=== PATIENT | female | born 1965 | race African-American/Black ===

== ENCOUNTER 2018-10-16 09:42 | Emergency (ER) | payer SELFPAY ==
[2018-10-16 10:03] VITALS: BP 142/95
--- NOTE | 2018-10-16 11:21 | Emergency Department Report ---
ED Fall HPI - General Chief Complaint: Head Injury Stated Complaint: FACE INJURY Time Seen by Provider: 10/16/18 11:13 Source: patient, family Mode of arrival: Ambulatory - History of Present Illness Initial Comments: Patient is 53 years old female with no significant past medical history. Patient presented to the ER accompanied by her is translating for her. He stated that patient slipped and fell 2 days ago and hit her head and right side of her face and her back also. Patient denied any loss of consciousness, focal weakness numbness or tingling sensation. No bowel or bladder incontinence. MD Complaint: fall -: week(s) Fall From: standing Fall Witnessed: yes, by family Place Fall Occurred: home Loss of Consciousness: none Symptoms Prior to Fall: none Location: head, face, back Severity: moderate Severity scale (0 -10): 4 Quality: dull Context: tripped/slipped Associated Symptoms: denies - Related Data Allergies Allergy/AdvReac Type Severity Reaction Status Date / Time No Known Allergies Allergy Unverified 10/16/18 09:56 ED Review of Systems ROS: Stated complaint: FACE INJURY Other details as noted in HPI Comment: All other systems reviewed and negative Constitutional: denies: chills, fever Respiratory: denies: cough, shortness of breath, SOB with exertion Cardiovascular: denies: chest pain Gastrointestinal: denies: abdominal pain, nausea, vomiting, diarrhea, constipation, hematemesis, melena, hematochezia Musculoskeletal: back pain Neurological: denies: headache, weakness, numbness, paresthesias, confusion, abnormal gait ED Past Medical Hx - Past Medical History Previous Medical History?: Yes Additional medical history: Appendicitis - Surgical History Past Surgical History?: Yes Hx Appendectomy: Yes Additional Surgical History: - Social History Smoking Status: Never Smoker Substance Use Type: None ED Physical Exam - General Limitations: Language Barrier General appearance: alert, in no apparent distress - Head Head exam: Present: other - Eye Eye exam: Present: periorbital swelling, periorbital tenderness - ENT ENT exam: Present: normal exam, normal orophraynx - Neck Neck exam: Present: normal inspection, full ROM. Absent: tenderness, meningismus, lymphadenopathy, thyromegaly - Respiratory Respiratory exam: Present: normal lung sounds bilaterally - Cardiovascular Cardiovascular Exam: Present: regular rate, normal rhythm, normal heart sounds - GI/Abdominal GI/Abdominal exam: Present: soft, normal bowel sounds. Absent: distended, tenderness, guarding, rebound, rigid, organomegaly, mass, bruit, pulsatile mass, hernia - Extremities Exam Extremities exam: Present: normal inspection, full ROM, normal capillary refill. Absent: pedal edema, calf tenderness - Back Exam Back exam: Present: normal inspection, full ROM. Absent: CVA tenderness (R), CVA tenderness (L), muscle spasm, paraspinal tenderness, vertebral tenderness - Neurological Exam Neurological exam: Present: alert, oriented X3, CN II-XII intact, normal gait, reflexes normal - Psychiatric Psychiatric exam: Present: normal mood - Skin Skin exam: Present: warm, intact, normal color ED Course Vital Signs 10/16/18 09:56 Temperature 98.1 F Pulse Rate 79 Respiratory 18 Rate Blood Pressure 142/95 O2 Sat by Pulse 98 Oximetry ED Medical Decision Making - Radiology Data Radiology results: report reviewed Referring Physician: CHIQUITA HOLLAND Patient Name: TIMOTHY CAMP Date of : 1965 Sex: Female Report Date: 2018-10-16 Report Status: Finalized Findings [facility] [address] [place] [address] Cat Scan Report Signed Patient: TIMOTHY CAMP MR#: [id number] : 1965 Acct:[id number] Age/Sex: 53 / F ADM Date: 10/16/18 Loc: ED Attending Dr: Ordering Physician: CHIQUITA HOLLAND Date of Service: 10/16/18 Procedure(s): CT facial bones wo [facility] Accession Number(s): [id number] cc: CHIQUITA HOLLAND CT MAXILLOFACIAL WITHOUT CONTRAST INDICATION: FALL, FACIAL TRAUMA. Patient reports right eye pain. TECHNIQUE: Maxillofacial CT without contrast All CT scans at this location are performed using CT dose reduction for ALARA by means of automated exposure control. COMPARISON: None available. FINDINGS: FACIAL BONES: No fracture or other significant abnormality. PARANASAL SINUSES: No significant abnormality. ORBITS: There is a small periorbital hematoma around the right eye. The right globe appears normal. There is no intraorbital hematoma. VISUALIZED INTRACRANIAL STRUCTURES: No significant abnormality. ADDITIONAL FINDINGS: None. IMPRESSION: 1. Small periorbital hematoma in the subcutaneous soft tissues around the right eye without intraorbital soft tissue injury. 2. No acute maxillofacial fracture identified. Signer Name: Remy Mckinley MD Signed: 10/16/2018 12:24 PM Workstation Name: [id number] Transcribed By: DARNELL Dictated By: Remy Mckinley MD Electronically Authenticated By: Remy Mckinley MD Signed Date/Time: 10/16/18 1224 DD/ 1222 TD/TT: Referring Physician: CHIQUITA HOLLAND Patient Name: TIMOTHY CAMP Date of : 1965 Sex: Female Report Date: 2018-10-16 Report Status: [place] [address] Cat Scan Report Signed Patient: TIMOTHY CAMP MR#: [id number] : 1965 Acct:[id number] Age/Sex: 53 / F ADM Date: 10/16/18 Loc: ED Attending Dr: Ordering Physician: CHIQUITA HOLLAND Date of Service: 10/16/18 Procedure(s): CT head/brain wo con Accession Number(s): [id number] cc: CHIQUITA HOLLAND CT head/brain wo con INDICATION: Altered mental status, recent fall. TECHNIQUE: Routine CT head without contrast. All CT scans at this location are performed using CT dose reduction for ALARA by means of automated exposure control. COMPARISON: None. FINDINGS: BRAIN / INTRACRANIAL CONTENTS: No acute hemorrhage, mass effect, midline shift, or hydrocephalus. No appreciable acute large territorial or lacunar infarct. No chronic infarct or focal atrophy. Normal brain volume and ventricular/sulcal size for age. ORBITS: No significant abnormality of visualized orbits. SINUSES / MASTOIDS: No significant abnormality of visualized sinuses and mastoid air cells. ADDITIONAL FINDINGS: None. IMPRESSION: 1. Negative head CT. Signer Name: Remy Mckinley MD Signed: 10/16/2018 12:22 PM Workstation Name: [id number] Transcribed By: DARNELL Dictated By: Remy Mckinley MD Electronically Authenticated By: Remy Mckinley MD Signed Date/Time: 10/16/18 1222 DD/ 1221 TD/TT: - Medical Decision Making Patient is 53 years old female with no significant past medical history. Patient presented to the ER accompanied by her is translating for her. He stated that patient slipped and fell 2 days ago and hit her head and right side of her face and her back also. Patient denied any loss of consciousness, focal weakness numbness or tingling sensation. No bowel or bladder incontinence. Patient remained stable in the ER. CT brain, CT facial bone and x-ray of the lumbar spine is negative for acute finding. I asked the patient directly if there is any possibility of spouse abuse patient immediately denied. I advised her to return to the ER if she have any new symptoms or if she needs any help including social help also. Critical care attestation.: If time is entered above; I have spent that time in minutes in the direct care of this critically ill patient, excluding procedure time. ED Disposition Clinical Impression: Fall, Head injury due to trauma, Lower back injury Disposition: TO HOME OR SELFCARE Is pt being admited?: No Condition: Stable Instructions: Fall Prevention (ED), Minor Head Injury (ED), Low Back Strain (ED) Referrals: PRIMARY [facility] [Referring] - 3-5 Days
--- NOTE | 2018-10-16 11:48 | XRay Report ---
Lumbar spine 3 views INDICATION: Low back pain following injury IMPRESSION: There is some slight loss of height involving the L5 vertebral body, age indeterminate. T here is severe discogenic type degenerative change at L4-L5. No lumbar spine subluxation identified. Signer Name: Kilo Martinez MD Signed: 10/16/2018 11:44 AM Workstation Name: [id number]
--- NOTE | 2018-10-16 12:27 | Cat Scan Report ---
CT head/brain wo con INDICATION: Altered mental status, recent fall. TECHNIQUE: Routine CT head without contrast. All CT scans at this location are performed using CT dos e reduction for ALARA by means of automated exposure control. COMPARISON: None. FINDINGS: BRAIN / INTRACRANIAL CONTENTS: No acute hemorrhage, mass effect, midline shift, or hydrocephalus. No appreciable acute large territorial or lacunar infarct. No chronic infarct or focal atrophy. Normal b rain volume and ventricular/sulcal size for age. ORBITS: No significant abnormality of visualized orbits. SINUSES / MASTOIDS: No significant abnormality of visualized sinuses and mastoid air cells. ADDITIONAL FINDINGS: None. IMPRESSION: 1. Negative head CT. Signer Name: Remy Mckinley MD Signed: 10/16/2018 12:22 PM Workstation Name: [email or web address]
--- NOTE | 2018-10-16 12:29 | Cat Scan Report ---
CT MAXILLOFACIAL WITHOUT CONTRAST INDICATION: FALL, FACIAL TRAUMA. Patient reports right eye pain. TECHNIQUE: Maxillofacial CT without contrast All CT scans at this location are performed using CT dose reduction for ALARA by means of automated exposure control. COMPARISON: None available. FINDINGS: FACIAL BONES: No fracture or other significant abnormality. PARANASAL SINUSES: No significant abnormality. ORBITS: There is a small periorbital hematoma around the right eye. The right globe appears normal. T here is no intraorbital hematoma. VISUALIZED INTRACRANIAL STRUCTURES: No significant abnormality. ADDITIONAL FINDINGS: None. IMPRESSION: 1. Small periorbital hematoma in the subcutaneous soft tissues around the right eye without intraor bital soft tissue injury. 2. No acute maxillofacial fracture identified. Signer Name: Remy Mckinley MD Signed: 10/16/2018 12:24 PM Workstation Name: [id number]
[2018-10-17] MEDS ORDERED: NACL 0.9% 1000 ML 0 ML ONE (23:13)
== END 2018-10-16 12:59 | disposition home or self-care (01) ==
LOC: ED 09:42
DX: S39.92XA Unspecified injury of lower back, initial encounter (principal); S09.90XA Unspecified injury of head, initial encounter; W01.10XA Fall on same level from slipping, tripping and stumbling with subsequent striking against unspecified object, initial encounter; Y93.89 Activity, other specified; Y92.89 Other specified places as the place of occurrence of the external cause; Y99.8 Other external cause status
CPT/HCPCS: 70450; 70486; 72100; J7030

== ENCOUNTER 2021-08-28 13:49 | Emergency (ER) | payer SELFPAY ==
[2021-08-28] MEDS ORDERED: ACETAMINOPHEN 325 MG TAB PO ONE (16:52)
[2021-08-28] MEDS ORDERED: METOCLOPRAMIDE 10 MG TAB PO ONE (16:52)
--- NOTE | 2021-08-28 16:54 | Emergency Department Report ---
ED General Adult HPI - General Chief complaint: Fall Stated complaint: GLF/HIT HEAD/LEFT SHOULDER/AND BACK PAIN Time Seen by Provider: 08/28/21 16:33 Source: patient, family, EMS ( EMS documentation not available at time of chart dictation ), RN notes reviewed, old records reviewed Mode of arrival: Stretcher Limitations: Language Barrier - History of Present Illness Initial comments: The patient was evaluated in the emergency department for symptoms described in the history of present illness. He/she was evaluated in the context of the global COVID-19 pandemic, which necessitated consideration that the patient might be at risk for infection with the virus that causes COVID-19. Institutional protocols and algorithms that pertain to the evaluation of patients at risk for COVID-19 are in a state of rapid change based on information released by regulatory bodies including the CDC and federal and state organizations. These policies and algorithms were followed during the patient's care in the emergency department. Please note that these policies, procedures and recommendations changed on a rapid basis. [place]ian per diem interpreter [id number] During the history and physical examination I am chaperoned by nurse Tosin Dunn. Patient is a 56-year-old female who has reported no significant past medical history, who presents today with a complaint of probable mechanical fall. Patient reports being in her usual state of health, when she fell at work. She reports no antecedent symptoms. After the fall, she complains of headache, neck pain, left upper back pain and left shoulder pain. The patient states that she does not specifically recall waking up. She only complains in the aforementioned areas. She believes that she fell at around 8:30 in the morning She told the nursing team that she fell onto her butt and then onto her back without antecedent symptoms. Severity scale (0 -10): 5 - Related Data Previous Rx's Medication Instructions Recorded Last Taken Type Acetaminophen [Non-Aspirin Extra 500 mg PO Q6HR PRN #30 tablet 08/28/21 Unknown Rx Strength] Ibuprofen [Motrin] 600 mg PO Q8H PRN #30 tablet 08/28/21 Unknown Rx Metoclopramide [Reglan] 10 mg PO QID PRN #30 tablet 08/28/21 Unknown Rx Allergies Allergy/AdvReac Type Severity Reaction Status Date / Time No Known Allergies Allergy Verified 08/28/21 13:58 ED Review of Systems ROS: Stated complaint: GLF/HIT HEAD/LEFT SHOULDER/AND BACK PAIN Other details as noted in HPI Constitutional: see HPI ENT: as per HPI Respiratory: see HPI Cardiovascular: as per HPI. denies: chest pain Gastrointestinal: denies: abdominal pain Musculoskeletal: back pain, arthralgia, myalgia Neurological: headache. denies: weakness ED Past Medical Hx - Past Medical History Additional medical history: Appendicitis - Surgical History Hx Appendectomy: Yes Additional Surgical History: - Social History Smoking Status: Never Smoker Substance Use Type: None - Medications Home Medications: Home Medications Medication Instructions Recorded Confirmed Last Taken Type Acetaminophen [Non-Aspirin Extra 500 mg PO Q6HR PRN #30 tablet 08/28/21 Unknown Rx Strength] Ibuprofen [Motrin] 600 mg PO Q8H PRN #30 tablet 08/28/21 Unknown Rx Metoclopramide [Reglan] 10 mg PO QID PRN #30 tablet 08/28/21 Unknown Rx ED Physical Exam - General Limitations: Language Barrier General appearance: alert, in no apparent distress - Head Head exam: Present: atraumatic, normocephalic - Eye Eye exam: Present: normal appearance, EOMI. Absent: nystagmus - ENT ENT exam: Present: normal exam, normal orophraynx, mucous membranes moist, normal external ear exam - Neck Neck exam: Present: normal inspection, tenderness, full ROM, other (There is paracervical tenderness. There is no midline spinal tenderness or step-off). Absent: meningismus - Respiratory Respiratory exam: Present: normal lung sounds bilaterally. Absent: respiratory distress, wheezes, rales, rhonchi, stridor - Cardiovascular Cardiovascular Exam: Present: regular rate, normal rhythm, normal heart sounds. Absent: bradycardia, tachycardia, irregular rhythm, systolic murmur, diastolic murmur, rubs, gallop - GI/Abdominal GI/Abdominal exam: Present: soft. Absent: distended, tenderness, guarding, rebound, rigid, pulsatile mass - Extremities Exam Extremities exam: Present: normal inspection, full ROM, tenderness (There is left shoulder and left posterior trapezius tenderness), other (2+ pulses noted in the bilateral upper and lower extremities. There is no palpable cord. negative Homans sign. Muscular compartments are soft. The pelvis is stable.). Absent: calf tenderness - Back Exam Back exam: Present: normal inspection, paraspinal tenderness. Absent: tenderness, CVA tenderness (R), muscle spasm, vertebral tenderness - Neurological Exam Neurological exam: Present: alert, other (There is no facial droop. The tongue is midline. EOMI. 5 out of 5 strength in 4 extremities. Sensation is intact to light touch and pinch in 4 extremities) - Psychiatric Psychiatric exam: Present: flat affect - Skin Skin exam: Present: warm, dry, intact, normal color. Absent: rash ED Course Vital Signs 08/28/21 08/28/21 08/28/21 13:55 17:36 17:39 Temperature 98.3 F 98.9 F Pulse Rate 53 L 82 71 Respiratory 16 18 18 Rate Blood Pressure 150/65 Blood Pressure 136/66 150/63 [Left] O2 Sat by Pulse 99 99 99 Oximetry - Reevaluation(s) Reevaluation #1: 08/28/21 18:22 Differential diagnosis, including but not limited to: Orthostasis, vagal event, closed head injury, sprain, strain, fracture, dislocation Assessment and plan: 56-year-old female, who is not currently tachycardic, tachypneic or hypoxic, who is low risk by Wells criteria for pulmonary embolism, who presents to the department today with a complaint of fall which is likely mechanical. She is clinically sober, moving 4 extremities, and currently looking on her cellular phone at this time, and she is in no acute distress. Her EKG does not demonstrate any emergent findings. CT scan of the brain and cervical spine are negative for acute or emergent findings. X-ray of the chest and left shoulder are negative for acute/emergent findings. Patient reports the event happened at 830 this morning. Laboratory studies are essentially nonactionable. Patient is observed in this department for hours without clinical decompensation, or any loss of consciousness. This is most likely mechanical fall, with closed injury and concussion. Rest, ice, compression, elevation, Tylenol, Motrin, as needed Reglan, follow-up with outpatient primary care 08/28/21 18:50 Laboratory studies are unremarkable. Imaging studies are unremarkable. Using auto hauler #[id number], discussed all findings with patient. She articulates understanding. Patient is making multiple request to be discharged. She is advised as to the natural history of blunt head injury and concussion. All questions are answered. Return precautions are reviewed. On final reassessment, the patient is sitting down in stretcher, in no acute distress, on her cell phone, moving 4 extremities, protecting her airway, and endorsing this desire and readiness for discharge ED Medical Decision Making - Lab Data Result diagrams: 08/28/21 17:48 08/28/21 17:48 Vital Signs 08/28/21 08/28/21 08/28/21 13:55 17:36 17:39 Temperature 98.3 F 98.9 F Pulse Rate 53 L 82 71 Respiratory 16 18 18 Rate Blood Pressure 150/65 Blood Pressure 136/66 150/63 [Left] O2 Sat by Pulse 99 99 99 Oximetry - EKG Data -: EKG Interpreted by Ca EKG shows normal: sinus rhythm Rate: normal - EKG Data 08/28/21 17:45 The EKG is interpreted at 17: 33 Sinus rhythm, 67 bpm 67 bpm. Normal axis, normal P wave axis, motion artifact, QTC 4 3 4 ms. This is an abnormal EKG. This is not a STEMI - Radiology Data Radiology results: pending, report reviewed, image reviewed CT head/brain wo con INDICATION / CLINICAL INFORMATION: 56 years Female; fall closed hea dinjury. TECHNIQUE: Routine CT head without contrast. All CT scans at this location are performed using CT dose reduction for ALARA by means of automated exposure control. COMPARISON: The study is compared to previous CT of 10/16/2018. FINDINGS: BRAIN / INTRACRANIAL CONTENTS: There is calcification involving basal ganglia bilaterally. The brain otherwise appears to demonstrate appropriate attenuation for age. The ventricular system is within normal limits in size and configuration. There is no clear CT evidence of acute intracranial hemorrhage or significant mass effect. ORBITS: No significant abnormality of visualized orbits. SINUSES / MASTOIDS: No significant abnormality in the visualized paranasal sinuses or mastoid air cells. CRANIOCERVICAL JUNCTION: No significant abnormality. ADDITIONAL FINDINGS: None. IMPRESSION: 1. There is no clear CT evidence of acute intracranial process. Signer Name: Shaw Rich MD Signed: 08/28/2021 4:17 PM Workstation Name: [id number] CT CERVICAL SPINE: 08/28/2021 INDICATION / CLINICAL INFORMATION: fall closed hea dinjury. COMPARISON: None available. FINDINGS: CT images of the cervical spine were obtained. Images are evaluated in the axial, coronal, and sagittal planes. There is no evidence of acute abnormality. Mild left convex scoliosis of the cervical spine is associated with right convexity of the upper thoracic spine. Vertebral body height is well preserved. Degenerative disc space narrowing and osteophyte formation is present at C3-4 C4-5, C5-6. There is no evidence of osseous canal narrowing. Left-sided foraminal narrowing is present at C3-4 and C5-6. CRANIOCERVICAL JUNCTION: Unremarkable. PARASPINAL STRUCTURES: No acute abnormality. IMPRESSION: All CT scans at this location are performed using dose reduction to ALARA by means of automated exposure control. Signer Name: Ion Richardson MD Signed: 08/28/2021 4:27 PM . XR chest 1V ap INDICATION / CLINICAL INFORMATION: fall upper back pain pain. COMPARISON: None available. FINDINGS: SUPPORT DEVICES: None. HEART /PULMONARY VASCULATURE: No significant abnormality. LUNGS / PLEURA: No significant pulmonary or pleural abnormality. No pneumothorax. ADDITIONAL FINDINGS: No acute displaced fracture. IMPRESSION: 1. No acute findings. Signer Name: Jose Villa MD Signed: 08/28/2021 4:57 PM Workstation Name: [id number] Left shoulder 3 views INDICATION: Fall FINDINGS: Glenohumeral joint and AC joint appear normal. No acute fracture or dislocation. Osteophyte femoral head neck junction medially. Signer Name: Suleman Harding MD Signed: 08/28/2021 4:57 PM Workstation Name: [id number] Critical care attestation.: If time is entered above; I have spent that time in minutes in the direct care of this critically ill patient, excluding procedure time. ED Disposition Clinical Impression: Neck pain Fall Qualifiers: Encounter type: initial encounter Qualified Code(s): W19.XXXA - Unspecified fall, initial encounter Closed head injury Qualifiers: Encounter type: initial encounter Qualified Code(s): S09.90XA - Unspecified injury of head, initial encounter Left shoulder pain Qualifiers: Chronicity: acute Qualified Code(s): M25.512 - Pain in left shoulder Disposition: 01 HOME / SELF CARE / HOMELESS Is pt being admited?: No Does the pt Need Aspirin: No Condition: Good Additional Instructions: Pain typically gets worse before its better after mechanical fall. Recommend that patient rest, avoid heavy lifting and strenuous physical activity and avoid contact sports, athletics, and follow-up with a primary care doctor within the next 5 to 7 days for repeat checkup and evaluation. Alternate ice packs and heat packs, and participate in range of motion exercises as tolerated. Recommend the patient not drive, operate motor vehicles, or make important decisions. Recommend that patient follow-up with a primary care doctor within the next week for repeat checkup and evaluation. Please take the prescribed callie n medications and headache medication/vomiting medication as needed and directed. please return to the emergency room right away with new pain, worsened pain, migration of pain, projectile vomiting, change in mental status, confusion, inability tolerate liquid feeds, new, worsened or different symptoms not present on the initial emergency room evaluation ?au th??ng tr? nn t?i t? h?n tr??c khi ?? h?n brayan c ng c? h?c. Khuy?n co b?nh nhn nn ngh? ng?i, trnh khun vc n?ng v ho?t ??ng th? ch?t g?ng s?c v trnh ti?p xc v?i cc mn th? harish, ?i?n kinh v ti khm v?i bc s? ch?m sc chnh luis vng 5 ??n 7 ngy t?i ?? ki?m tra v ?nh gi l?i. Thay th? ch??m ? v ch??m nng, ??ng th?i lisa emma vo m?t lo?t cc bi t?p v?n ??ng n?u c th? ch?p nh?n ???c. Khuy?n co b?nh nhn khng li xe, v?n hnh cc ph??ng ti?n c? gi?i ho?c ??a ra cc lucero?t ??nh eric tr?ng. ?? ngh? b?nh nhn ti khm v?i bc s? ch?m sc chnh luis vng tu?n t?i ?? ki?m tra v ?nh gi l?i. Vui lng dng cc lo?i asia?c gi?m ?au ???c k ??n v asia?c ?au ??u / asia?c nn von ch? ??nh v c?n thi?t. vui lng tr? l?i phng c?p c?u ngay l?p t?c v?i c?n ?au m?i, c?n ?au n?ng h?n, c?n ?au di frank?n, nn m?a do ??n b?n, thay ??i tr?ng thi audrey th?n, l l?n, khng th? dung n?p th?c ?n l?ng, cc tri?u ch?ng m?i, n?ng h?n ho?c khc khng c luis ?nh gi ban ??u t?i phng c?p c?u Prescriptions: Ibuprofen [Motrin] 600 mg PO Q8H PRN #30 tablet PRN Reason: Pain Acetaminophen [Non-Aspirin Extra Strength] 500 mg PO Q6HR PRN #30 tablet PRN Reason: Pain , Severe (7-10) Metoclopramide [Reglan] 10 mg PO QID PRN #30 tablet PRN Reason: Nausea Referrals: [facility] [Provider Group] - 3-5 Days [facility] [Outside] - 3-5 Days Forms: Work/School Release Form(ED)
--- NOTE | 2021-08-28 17:21 | Cat Scan Report ---
CT head/brain wo con INDICATION / CLINICAL INFORMATION: 56 years Female; fall closed hea dinjury. TECHNIQUE: Routine CT head without contrast. All CT scans at this location are performed using CT dos e reduction for ALARA by means of automated exposure control. COMPARISON: The study is compared to previous CT of 10/16/2018. FINDINGS: BRAIN / INTRACRANIAL CONTENTS: There is calcification involving basal ganglia bilaterally. The brain otherwise appears to demonstrate appropriate attenuation for age. The ventricular system is within no rmal limits in size and configuration. There is no clear CT evidence of acute intracranial hemorrhage or significant mass effect. ORBITS: No significant abnormality of visualized orbits. SINUSES / MASTOIDS: No significant abnormality in the visualized paranasal sinuses or mastoid air pam ls. CRANIOCERVICAL JUNCTION: No significant abnormality. ADDITIONAL FINDINGS: None. IMPRESSION: 1. There is no clear CT evidence of acute intracranial process. Signer Name: Shaw Rich MD Signed: 08/28/2021 5:17 PM Workstation Name: [id number]
--- NOTE | 2021-08-28 17:31 | Cat Scan Report ---
CT CERVICAL SPINE: 08/28/2021 INDICATION / CLINICAL INFORMATION: fall closed hea dinjury. COMPARISON: None available. FINDINGS: CT images of the cervical spine were obtained. Images are evaluated in the axial, coronal, and sagitt al planes. There is no evidence of acute abnormality. Mild left convex scoliosis of the cervical spine is associated with right convexity of the upper thor acic spine. Vertebral body height is well preserved. Degenerative disc space narrowing and osteophyte formation is present at C3-4 C4-5, C5-6. There is no evidence of osseous canal narrowing. Left-sided foraminal narrowing is present at C3-4 and C5-6. CRANIOCERVICAL JUNCTION: Unremarkable. PARASPINAL STRUCTURES: No acute abnormality. IMPRESSION: All CT scans at this location are performed using dose reduction to ALARA by means of automated expos ure control. Signer Name: Ion Richardson MD Signed: 08/28/2021 5:27 PM Workstation Name: [id number]
[2021-08-28 17:41] VITALS: BP 150/65
--- NOTE | 2021-08-28 18:01 | XRay Report ---
. XR chest 1V ap INDICATION / CLINICAL INFORMATION: fall upper back pain pain. COMPARISON: None available. FINDINGS: SUPPORT DEVICES: None. HEART /PULMONARY VASCULATURE: No significant abnormality. LUNGS / PLEURA: No significant pulmonary or pleural abnormality. No pneumothorax. ADDITIONAL FINDINGS: No acute displaced fracture. IMPRESSION: 1. No acute findings. Signer Name: Jose Villa MD Signed: 08/28/2021 5:57 PM Workstation Name: [email or web address]
--- NOTE | 2021-08-28 18:02 | XRay Report ---
Left shoulder 3 views INDICATION: Fall FINDINGS: Glenohumeral joint and AC joint appear normal. No acute fracture or dislocation. Osteophyte femoral head neck junction medially. Signer Name: Suleman Harding MD Signed: 08/28/2021 5:57 PM Workstation Name: [id number]
[2021-08-28 18:21] LABS: Hematocrit 36.7 % (30.3-42.9); Mean Corpuscular HGB Conc 33 % (30-34); Mean Corpuscular Volume 93 fl (79-97); Platelet Count 257 K/mm3 (140-440); Red Blood Count 3.95 M/mm3 (3.65-5.03); Red Cell Distribution Width 12.2 % (13.2-15.2)
[2021-08-28 18:37] LABS: Blood Urea Nitrogen 11 mg/dL (7-17); Calcium 9.5 mg/dL (8.4-10.2); Hemolysis Index 10
[2021-08-28 18:40] LABS: BUN/Creatinine Ratio 18
[2021-08-28 18:47] LABS: INR 0.97 (0.87-1.13)
--- NOTE | 2021-08-31 15:08 | Electrocardiograph Report ---
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
== END 2021-08-28 21:05 | disposition home or self-care (01) ==
LOC: ED 13:49
DX: S09.90XA Unspecified injury of head, initial encounter (principal); M54.2 Cervicalgia; M25.512 Pain in left shoulder; W19.XXXA Unspecified fall, initial encounter; Y93.89 Activity, other specified; Y92.89 Other specified places as the place of occurrence of the external cause; Y99.8 Other external cause status
CPT/HCPCS: 36415; 70450; 71045; 72125; 80048; 82550; 83735; 84484; 85027; 85610; 93005; 99285